=== PATIENT | male | born 1995 | race Caucasian/White ===

== ENCOUNTER 2022-10-09 10:49 | Emergency (ER) | payer SELFPAY ==
[2022-10-09] MEDS ORDERED: Ketorolac Tromethamine 30 MG/ML VIAL ONE (11:59)
== END 2022-10-09 18:58 | disposition home or self-care (01) ==
LOC: ERS 10:49
DX: S82.51XA Displaced fracture of medial malleolus of right tibia, initial encounter for closed fracture (principal); X50.1XXA Overexertion from prolonged static or awkward postures, initial encounter
CPT/HCPCS: 29515; 96372; J1885